=== PATIENT | male | born 1955 | race Caucasian/White ===

== ENCOUNTER 2019-03-04 06:42 | Inpatient (IN) ==
--- NOTE | 2019-02-11 16:29 | PAT Medication Instructions ---
Medication Instructions Date of Service February 11, 2019 Home Medications allopurinol 2 tab PO QPM chlorthalidone 25 mg PO QAM furosemide 20 mg PO DAILY levothyroxine 125 mcg PO QAM meloxicam 15 mg PO QAM metoprolol succinate 25 mg PO QAM omeprazole 20 mg PO QAM simvastatin 40 mg PO HS tramadol 50 mg PO HS ASK your surgeon for instructions meloxicam 15 mg PO QAM DO NOT take the morning of surgery chlorthalidone 25 mg PO QAM furosemide 20 mg PO DAILY Take morning of surgery With a small sip of water, OTHERWISE NOTHING TO EAT OR DRINK AFTER MIDNIGHT: levothyroxine 125 mcg PO QAM metoprolol succinate 25 mg PO QAM omeprazole 20 mg PO QAM Take evening before surgery allopurinol 2 tab PO QPM simvastatin 40 mg PO HS tramadol 50 mg PO HS Other Notes If you have any questions please call us at [phone] or [phone] or [phone] or [phone]
--- NOTE | 2019-02-12 09:13 | Anesthesiology Consultation ---
Date of Service February 12, 2019 Assessment & Plan (1) Encounter for pre-operative examination: - Discussed plan for spinal on day of surgery, but patient states that he is unsure he is willing to have a spinal and thinks he may only be agreeable to GA. Would like to discuss further with his and with the anesthesiologist the morning of surgery Chart Review Chart Review: Acceptable Risk for Surgery and Patient seen in Pre Admission Testing Consults Requested none Teaching & Discussion Pre-Anesthesia Teaching/Discussion Notes: Instructed NPO after midnight before surgery, except medications with 15 cc of water. Medication instructions provided according to the PAT guidelines. History Surgery Operation Date: 03/04/19 07:30 Proposed Procedures p Left Anterior Total Hip Replacement - Guille Foster, Height/Weight Height: 6 ft 2 in Weight: 126 kg Allergies Allergy/AdvReac Type Severity Reaction Status Date / Time latex Allergy Unknown cracked Verified 02/06/19 08:24 hands,skin irritation No Known Drug Allergies Allergy Unknown NONE Verified 02/06/19 08:24 Medications Home Medications Medication Instructions Recorded Confirmed Last Taken allopurinol 2 tab PO QPM 02/06/19 02/06/19 02/05/19 chlorthalidone 25 mg PO QAM 02/06/19 02/06/19 02/05/19 furosemide 20 mg PO DAILY 02/06/19 02/06/19 02/05/19 levothyroxine 125 mcg PO QAM 02/06/19 02/06/19 02/05/19 meloxicam 15 mg PO QAM 02/06/19 02/06/19 02/05/19 metoprolol succinate 25 mg PO QAM 02/06/19 02/06/19 02/05/19 omeprazole 20 mg PO QAM 02/06/19 02/06/19 02/05/19 simvastatin 40 mg PO HS 02/06/19 02/06/19 02/05/19 tramadol 50 mg PO HS 02/06/19 02/06/19 02/05/19 Past Medical History Medical History Acid reflux Gout L WRIST CURRENTLY History of head injury AGE 12 Hyperlipidemia Hypertension Hypothyroid Osteoarthritis Spinal stenosis Exercise / Class Metabolic Activity III < 4 Walking/Shop/Light housework (Limited currently due to pain. Unable to drive. Can slowly climb stairs because of pain. Denies CP. Does report CARMEN with stairs/hills. ) Past Family History Family History Other Family history of cancer in father Past Surgical History Surgical History History of back surgery Lumbar laminectomy - 06/09/16 - MAC #3, ETT #8.0, HiLo, Grade 3 View History of cardiac cath >10 years ago. Normal History of colonoscopy History of hernia surgery Bilateral Inguinal History of surgery of head Age 12 after head injury. Unsure of details. Past Anesthesia History No Hx of Anesthesia Complications and No Family Hx of Anesthesia Complications History of PONV No Hx of PONV and No Hx of Motion Sickness Social History Smoking Status: Never smoker Do You Dip or Chew Tobacco: No Hx Alcohol Use: No Hx Substance Use: No substance use type: does not use Review of Systems Patient denies chest pain, shortness of breath, cough, wheezing, palpitations. +CARMEN (with stairs and hills) +Joint Pain (Left wrist, Left Hip, Left Knee) +Acid Reflux (controlled with current medication) Physical Exam Vital Signs BP: 136/86 P: 72 R: 18 T: 97.7 SPO2: 96% on RA Constitutional + obese ENMT Thyromental Distance: > or= 3.5 Finger Breadths (4) Mallampati Class: I Neck normal visual inspection, trachea midline and + limited neck extension Respiratory normal respiratory effort Auscultation: lungs clear to auscultation bilaterally Cardiovascular Rate/Rhythm: regular rate and regular rhythm Heart Sounds: no murmur Vessels: no carotid bruit Neurologic moves all extremities Psychiatric Orientation: alert and oriented x 3 Testing Electrocardiogram Date: 02/12/19 Findings: + NSR @ (72) and + no change from (05/27/16) Chest X-Ray Date: 02/12/19 Findings: + NAD FINDINGS: The cardiac and mediastinal contours are normal. There is no evidence of focal pulmonary consolidation. There is no evidence of failure. No pleural effusions are visualized. IMPRESSION: No active disease in the chest. Laboratory Results 02/12/19 09:55 02/12/19 09:55 PT 10.6 Seconds (9.0-12.0) 02/12/19 09:55 INR 1.0 (0.9-1.1) 02/12/19 09:55 APTT 26.7 Seconds (21.0-31.0) 02/12/19 09:55 Blood Type A Positive 02/12/19 09:55 Antibody Screen NEGATIVE 02/12/19 09:55
--- NOTE | 2019-02-12 10:23 | XRay Report ---
XR chest Pre-admission PA/Lat CLINICAL HISTORY: Preoperative chest COMPARISON STUDY: May 27, 2016 FINDINGS: The cardiac and mediastinal contours are normal. There is no evidence of focal pulmonary co nsolidation. There is no evidence of failure. No pleural effusions are visualized.[ IMPRESSION: No active disease in the chest. Electronically signed by: Luis Fernando Bhakta M.D. 02/12/2019 10:22 AM
[2019-02-12 12:37] LABS: Eosinophils # (auto) 0.04 K/uL (0-0.5); Eosinophils % (auto) 0.7 %; Hematocrit (blood only) 41.3 % (42-52); Hemoglobin 14.2 g/dL (14.0-18.0); Immature Granulocytes # (auto) 0.02 K/uL (0.00-0.02); Immature Granulocytes % (auto) 0.3 %; Lymphocytes # (auto) 1.29 K/uL (1.2-3.4); Lymphocytes % (auto) 22.3 %; Mean Corpuscular Hgb Conc 34.4 g/dL (32-36); Mean Corpuscular Volume 86.2 fL (80-100); Mean Platelet Volume 10.2 fL (7.4-10.4); Monocytes % (auto) 8.7 %; Neutrophils # (auto) 3.93 K/uL (1.4-6.5); Platelet Count 279 K/uL (130-400); RDW Coefficient of Variation 13.4 % (11.5-14.5); RDW Standard Deviation 41.6 fL (36.4-46.3); Red Blood Count 4.79 M/uL (4.7-6.1); White Blood Count 5.78 K/uL (4.8-10.8)
[2019-02-12 12:53] LABS: Partial Thromboplastin Time 26.7 Seconds (21.0-31.0); Prothrombin Time 10.6 Seconds (9.0-12.0)
[2019-02-12 13:49] LABS: BUN Creatinine Ratio 15.9 (10-20); Calcium 9.5 mg/dl (8.5-10.1); Creatinine Clr Calc Pharmacy 97.7 ml/min; Est GFR (African American) 81.7; Est GFR (Non-African American) 70.5; Potassium 3.9 mmol/L (3.5-5.1)
--- NOTE | 2019-02-26 15:10 | History & Physical Report ---
Date of Service February 26, 2019 Assessment & Plan (1) Osteoarthritis of left hip: We will proceed with a left anterior total hip arthroplasty. Postoperatively he will be placed on aspirin for DVT prophylaxis. He will be kept overnight in the hospital for postop medical management. He plans to talk to case management regarding physical therapy upon discharge. Present on Admission?: Yes History of Present Illness Chief Complaint: Primary osteoarthritis of the left hip Primary Care Provider: Violet Blum MD Ilir is a pleasant 63-year-old male who is been dealing with chronic increasing left hip and groin pain. He is using a cane now because of his left hip pain. X-rays and clinical examination have been diagnostic for primary osteoarthritis of the left hip. After failing extensive conservative treatment, he has elected proceed with a left anterior total hip arthroplasty. Allergies Allergy/AdvReac Type Severity Reaction Status Date / Time latex Allergy Unknown cracked Verified 02/06/19 08:24 hands,skin irritation No Known Drug Allergies Allergy Unknown NONE Verified 02/06/19 08:24 Home Medications Home Medications Medication Instructions Recorded Confirmed Type allopurinol 2 tab PO QPM 02/06/19 02/06/19 History chlorthalidone 25 mg PO QAM 02/06/19 02/06/19 History furosemide 20 mg PO DAILY 02/06/19 02/06/19 History levothyroxine 125 mcg PO QAM 02/06/19 02/06/19 History meloxicam 15 mg PO QAM 02/06/19 02/06/19 History metoprolol succinate 25 mg PO QAM 02/06/19 02/06/19 History omeprazole 20 mg PO QAM 02/06/19 02/06/19 History simvastatin 40 mg PO HS 02/06/19 02/06/19 History tramadol 50 mg PO HS 02/06/19 02/06/19 History Past Med/Surg History Medical History Acid reflux Gout L WRIST CURRENTLY History of head injury AGE 12 Hyperlipidemia Hypertension Hypothyroid Osteoarthritis Spinal stenosis Surgical History History of back surgery Lumbar laminectomy - 06/09/16 - MAC #3, ETT #8.0, HiLo, Grade 3 View History of cardiac cath >10 years ago. Normal History of colonoscopy History of hernia surgery Bilateral Inguinal History of surgery of head Age 12 after head injury. Unsure of details. Family History Other Family history of cancer in father Social History Preferred Language: Upper Sorbian Communication Ability: Effective Rfid Specialist Required: No Beliefs That Will Affect Care: None Current Living Situation: Spouse Other Information That Helps Us Care for You: No Feels Safe at Home: Yes Smoking Status: Never smoker Do You Dip or Chew Tobacco: No Hx Alcohol Use: No Hx Substance Use: No Review of Systems All systems reviewed & are unremarkable except as noted in HPI & below Physical Exam Constitutional: WD/WN, vitals as above Eyes: PERRL, conjunctivae normal, anicteric sclerae ENMT: external ear and nose normal, oropharynx normal Neck: trachea midline, no thyromegaly Respiratory: normal respiratory effort Cardiovascular: RRR, no murmur, no edema Gastrointestinal (Abdomen): normal bowel sounds, soft, nontender, no hepatosplenomegaly Musculoskeletal: Physical examination of the left hip reveals decreased range of motion with flexion, internal and external rotation. There is significant groin pain with forced internal rotation of the hip his leg lengths are essentia lly equal. Psychiatric: A+Ox3, euthymic affect Results & Data Diagnostic Findings Radiographs of the left hip and pelvis demonstrate advanced osteoarthritis with joint space narrowing osteophyte formation and [id number] articulation.
[~2019-03-04 06:42] MED LIST: ACETAMINOPHEN 500 MG TAB PO SCH; CEFAZOLIN 3000MG 65 ML IV SCH; FAMOTIDINE 20 MG TAB PO SCH; GABAPENTIN 300 MG x 2 PO SCH; LR 500ML BOLUS, THEN 15ML/HR IV SCH; LR 60ML/HR IV SCH; ROPIVACAINE 0.5% HCL/PF 150 MG, BUPIVACAINE 0.5% MPF 30 ML, EPINEPHrine 30MG/30ML (OR U... INFIL SCH; TRANEXAMIC ACID 1,000 MG **IV Intra-op IV SCH; TRANEXAMIC ACID 1,000 MG **IV Pre-op IV SCH
[2019-03-04] MEDS ORDERED: BUPIVACAINE 0.5 % 5 MG/1 ML PF 10ML VIAL ONE (07:16)
[2019-03-04] MEDS ORDERED: PROPOFOL IV EMULSION 10 MG/ML 20 ML VIAL IV ONE (07:36)
[2019-03-04] MEDS ORDERED: fentaNYL citrate 100 MCG/2 ML VIAL ONE ×2 (07:36→11:12)
[2019-03-04] MEDS ORDERED: MIDAZOLAM HCL 1 MG/ML 2ML VIAL ONE (07:37)
[2019-03-04] MEDS ORDERED: ATROPINE SULFATE 0.1 MG/ML 10ML SYR IV PRN (08:17)
[2019-03-04] MEDS ORDERED: ePHEDrine sulfate 50 MG/ML AMP IV PRN (08:17)
[2019-03-04] MEDS ORDERED: ONDANSETRON INJ 2 MG/ML 2 ML VIAL IV PRN (08:17)
[2019-03-04] MEDS ORDERED: LIDOCAINE HCL 2% 2 ML VIAL/AMP(20MG/ML) INFIL ONE (08:19)
[2019-03-04] MEDS ORDERED: ONDANSETRON INJ 2 MG/ML 2 ML VIAL ONE (08:19)
[2019-03-04] MEDS ORDERED: ROCURONIUM BROMIDE 10 MG/ML 5 ML VIAL ONE (08:19)
--- NOTE | 2019-03-04 08:52 | History & Physical Bridge Note ---
Date of Service March 04, 2019 History & Physical Bridge Note I have examined the patient, reviewed the History & Physical and in the interval since the performance of the History & Physical I have noted the following changes of clinical significance: no changes noted
[2019-03-04] MEDS ORDERED: POVIDONE-IODINE OP SOLN 30 ML BTL ONE (09:07)
[2019-03-04] MEDS ORDERED: ORTHO JOINT ANESTHETIC ONE (09:07)
[2019-03-04] MEDS ORDERED: NEOSTIGMINE METHYLSULFATE 5 MG/5 ML SYR ONE (11:40)
[2019-03-04] MEDS ORDERED: GLYCOPYRROLATE 0.2 MG/ML VIAL ONE (11:40)
--- NOTE | 2019-03-04 11:41 | Operative Report ---
Post Operative Report Pre & Post Diagnosis Operation Date: 03/04/19 09:10 Pre-Op Diagnosis: Left Hip Degenerative Joint Disease Post-Op Diagnosis: Left Hip Degenerative Joint Disease Procedure Operation Date: 03/04/19 09:10 Actual Procedures p Left Anterior Total Hip Replacement(Left) - Guille Foster DO Surgeon Guille Foster DO Broadband Technician Guille Jacob PAC Estimated Blood Loss 250 Findings Consistent with Post-Op Diagnosis Specimens Left femoral head Complications none Disposition Disposition: Recovery Room Indications 83-year-old male who presented my office with complaints of chronic increasing left groin pain. X-rays and clinical examination were diagnostic for primary osteoarthritis of left hip. After failing conservative treatment, he elected to proceed with a left anterior total hip arthroplasty. Description of Procedure Implants used Biomet Taperloc total hip arthroplasty system with a size 15 mm standard offset Taperloc stem, a 56 mm G7 cup with a 25mm screw, an E1 polyethylene liner, a 40 mm ceramic head with a -3 neck. Patient arrived at the hospital for the above procedure. They were seen in the preoperative holding area and the operative extremity was identified and signed. They were given a spinal anesthetic. They were given a preoperative antibiotic and TXA. They were taken back To the operating room and laid on the table in the supine position. The leg was brought out through a Puristst leg positioner. The hip was then prepped and draped in sterile fashion. A timeout was done and the patient in upper extremities properly identified. An anterior approach was used. Dissection was taken down through the fascia and the tensor muscle belly was retracted laterally and the rectus was retracted medially. The circumflex vessels were identified and ligated. The capsule was then incised and tagged for later repair. The femoral neck was then cut and the femoral head was removed. The acetabulum was exposed. Time was spent doing a complete circumferential labral release. Sequential reaming of the acetabulum up to a size 55 reamer was done. Final reamings were done under fluoroscopy to ensure appropriate version. A Biomet 56 mm G7 cup was then impacted into place. A single 25 mm screw was placed. The E1 polyethylene liner was then snapped into place. Surrounding soft tissues were then injected with 100 cc of an orthopedic pain control cocktail. The proximal femur was then exposed. Sequential broaching up to a size 15 broach was done. Off that broach a size 40 head with a -3 neck was trialed. The hip was reduced and fluoroscopic images showed anatomic alignment of the implants in acceptable length. The broach was removed. The final size 15 standard offset Taperloc stem was then impacted into place. A ceramic 40 mm head with a -3 neck was then impacted into place in the hip was reduced. Final fluoroscopic images showed anatomic reduction of the hip. The capsule was then closed with #1 Vicryl suture. A dilute betadyne lavage was then done for 3 minutes. The joint was then irrigated with normal saline solution. The fascia was closed with #1 PDS suture. Skin was closed with 2-0 Vicryl, sanchez, and a Mary VAC dressing. The patient was then transferred to a hospital bed and taken to the post anesthesia care unit in stable condition. They tolerated the procedure well. I attest to the content of the Intraoperative Record and any orders documented therein. Any exceptions are noted below.
[2019-03-04] MEDS: fentaNYL citrate 100 MCG/2 ML VIAL IV PRN ×4 (12:15→12:43)
--- NOTE | 2019-03-04 12:36 | XRay Report ---
XR hip 1V LT w pelvis CLINICAL HISTORY: Postoperative evaluation. COMPARISON: Left hip radiographs January 09, 2019. FINDINGS: Alignment of the total left hip arthroplasty is anatomic. There is an acetabular screw. No fracture or unexpected radiopaque foreign bodies are present. IMPRESSION: Expected findings following total left hip arthroplasty. Electronically signed by: Devan Draper M.D. 03/04/2019 12:35 PM
--- NOTE | 2019-03-04 12:38 | Fluoroscopy Report ---
FL hip LT 1V CLINICAL HISTORY: Left hip arthroplasty. COMPARISON STUDY: Left hip radiographs January 09, 2019. FLUOROSCOPY TIME: 30 seconds. FLUOROSCOPIC IMAGES: 2. FINDINGS: These images demonstrate a total left hip arthroplasty. Hardware is intact. Acetabular scre w. There is no fracture or unexpected radiopaque foreign body. IMPRESSION: Intraoperative fluoroscopic images demonstrating total left hip arthroplasty. Electronically signed by: Devan Draper M.D. 03/04/2019 12:37 PM
[2019-03-04] MEDS: MoRPHine SULFATE 10 MG/ML CARP/VIAL IV PRN ×2 (12:53→13:00)
--- NOTE | 2019-03-04 13:17 | Anesthesiology Progress Note ---
Date of Service March 04, 2019 Anesthesia Post Procedure Vital Signs Vital Signs: Temp Pulse Resp BP Pulse Ox 03/04/19 13:10 97.3 F L 76 12 107/79 100 03/04/19 13:00 69 15 113/72 100 03/04/19 12:50 68 16 108/66 100 03/04/19 12:40 74 16 111/74 100 03/04/19 12:30 69 15 116/67 100 03/04/19 12:20 65 15 102/74 100 03/04/19 12:10 74 18 118/72 100 03/04/19 12:03 97.3 F L 70 17 131/70 100 03/04/19 07:12 97.9 F 92 H 18 165/94 H 99 Pain Intensity Left Hip: Pain Intensity: 4 Transfer of Care Handoff Completed per policy Notes Mental Status: alert / awake / arousable and participated in evaluation Patient Amnestic to Procedure: Yes Nausea / Vomiting: adequately controlled Pain: adequately controlled Airway Patency, RR, SpO2: stable & adequate BP & HR: stable & adequate Hydration State: stable & adequate Anesthetic Complications: no major complications apparent and Pt Satisfied with anesthetic care
[2019-03-04] MEDS ORDERED: MAGNESIUM HYDROXIDE SUSP 30 ML UDC PO PRN (13:43)
[2019-03-04] MEDS ORDERED: SODIUM CHLORIDE 0.9% 1000ML 1,000 ML IV SCH (13:43)
[2019-03-04] MEDS ORDERED: HYDROmorphone INJ 0.5 MG/0.5 ML SYR IV PRN (13:43)
[2019-03-04] MEDS ORDERED: METOCLOPRAMIDE HCL INJ 5 MG/ML 2 ML VIAL IV PRN (13:43)
[2019-03-04] MEDS ORDERED: BISACODYL 10 MG SUPP PR PRN (13:43)
[2019-03-04] MEDS ORDERED: NALOXONE HCL 0.4 MG/1 ML VIAL/CARP IV PRN (13:43)
[2019-03-04] MEDS: ACETAMINOPHEN 500 MG TAB PO SCH ×2 (14:12→21:07)
[2019-03-04] MEDS: KETOROLAC 30 MG/ML VIAL IV SCH ×2 (15:50→21:08)
[2019-03-04] MEDS: CEFAZOLIN 2000MG 2,000 MG/15 ML SYR IV SCH (16:36)
[2019-03-04] MEDS: SIMVASTATIN 40 MG TAB PO SCH (20:22)
[2019-03-04] MEDS: DOCUSATE SODIUM 100 MG CAP PO SCH (20:22)
[2019-03-04] MEDS: SENNA 8.6 MG TAB PO SCH (20:23)
[2019-03-04] MEDS: ASPIRIN 81 MG ECTAB PO SCH (20:23)
[2019-03-04] MEDS: ALLOPURINOL 100 MG TAB PO SCH (20:23)
[2019-03-05] MEDS: CEFAZOLIN 2000MG 2,000 MG/15 ML SYR IV SCH (01:45)
[2019-03-05] MEDS: KETOROLAC 30 MG/ML VIAL IV SCH ×4 (03:55→21:13)
[2019-03-05] MEDS: LEVOTHYROXINE SODIUM 125 MCG TABLET PO SCH (06:10)
[2019-03-05] MEDS: ACETAMINOPHEN 500 MG TAB PO SCH ×3 (06:10→21:13)
[2019-03-05 06:20] LABS: Eosinophils # (auto) 0.03 K/uL (0-0.5); Eosinophils % (auto) 0.3 %; Hematocrit (blood only) 36.1 % (42-52); Hemoglobin 11.7 g/dL (14.0-18.0); Immature Granulocytes # (auto) 0.03 K/uL (0.00-0.02); Immature Granulocytes % (auto) 0.3 %; Lymphocytes % (auto) 6.9 %; Mean Corpuscular Hgb Conc 32.4 g/dL (32-36); Mean Corpuscular Volume 87.4 fL (80-100); Mean Platelet Volume 9.6 fL (7.4-10.4); Monocytes # (auto) 0.71 K/uL (0.11-0.59); Neutrophils # (auto) 8.63 K/uL (1.4-6.5); Neutrophils % (auto) 85.5 %; Platelet Count 162 K/uL (130-400); RDW Coefficient of Variation 14.4 % (11.5-14.5); RDW Standard Deviation 45.8 fL (36.4-46.3); Red Blood Count 4.13 M/uL (4.7-6.1)
[2019-03-05] MEDS: TRAMADOL HCL 50 MG TABLET PO PRN ×3 (06:43→20:13)
[2019-03-05] MEDS ORDERED: HYDROCODONE/ACETAMOPHEN 5/325MG TAB PO PRN (06:49)
--- NOTE | 2019-03-05 06:49 | Orthopedic Progress Note ---
Date of Service March 05, 2019 Assessment & Plan (1) Osteoarthritis of left hip: Overall he is doing fairly well. He will be seen by physical therapy today to do ambulation and range of motion exercises. Is on aspirin for DVT prophylaxis and I am going to add some [place] for pain control. He said that tramadol generally does not work well for him but he can take oxycodone due to delirium. He was hoping to go to an inpatient rehab facility. Case management will be by today to discuss that with him. He can be discharged later today if he is ambulating well with physical therapy and if a bed is available at a rehab facility. He will follow-up with orthopedics in 2 weeks. Present on Admission?: Yes Ozzie Hazel was seen and examined at bedside this morning. Overall he is doing fairly well. Is not having much pain in the left hip. He was ambulating to the bathroom tonight. He has not been in the hallway yet. He has no complaints. Physical Exam Musculoskeletal: On physical examination of the left hip, the Mary VAC dressing is to suction. His leg lengths are equal. He has active dorsiflexion and plantarflexion of the left ankle. Sensations intact throughout. Results & Data Vital Signs (Past 12 Hours) Vital Signs Temp Pulse Resp BP Pulse Ox 03/05/19 03:53 36.6 C 77 18 120/71 95 03/04/19 23:20 36.4 C L 73 18 103/63 97 03/04/19 19:15 36.4 C L 87 18 131/83 97 Laboratory Results H & H 02/12/19 03/05/19 Range/Units 09:55 05:49 Hgb 14.2 11.7 L (14.0-18.0) g/dL Hct 41.3 L 36.1 L (42-52) % Coagulation 02/12/19 Range/Units 09:55 INR 1.0 (0.9-1.1) Diagnostic Findings Postoperative x-rays of the left hip show the prosthesis to be in anatomic alignment without any evidence of fracture, dislocation, or loosening.
[2019-03-05 06:54] LABS: BUN Creatinine Ratio 13.3 (10-20); Calcium 8.2 mg/dl (8.5-10.1); Est GFR (African American) 70.2; Est GFR (Non-African American) 60.6; Potassium 3.5 mmol/L (3.5-5.1)
[2019-03-05] MEDS: ASPIRIN 81 MG ECTAB PO SCH ×2 (08:53→20:14)
[2019-03-05] MEDS: DOCUSATE SODIUM 100 MG CAP PO SCH ×2 (08:53→20:14)
[2019-03-05] MEDS: METOPROLOL SUCC 25MG EXT REL TAB PO SCH (08:54)
[2019-03-05] MEDS: MULTIVITAMIN TAB PO SCH (08:54)
[2019-03-05] MEDS: FUROSEMIDE 20 MG TAB PO SCH (08:55)
[2019-03-05] MEDS: CHLORTHALIDONE 25 MG TAB PO SCH (08:55)
[2019-03-05] MEDS: PANTOprazole 40 MG TAB PO SCH (08:55)
--- NOTE | 2019-03-05 10:05 | Anesthesiology Progress Note ---
Date of Service March 05, 2019 Anesthesia Post Procedure Vital Signs Vital Signs: Temp Pulse Pulse Resp BP BP Pulse Ox 03/05/19 08:51 81 128/75 03/05/19 07:26 36.4 C L 77 18 116/70 98 03/05/19 03:53 36.6 C 77 18 120/71 95 03/04/19 23:20 36.4 C L 73 18 103/63 97 03/04/19 19:15 36.4 C L 87 18 131/83 97 03/04/19 16:28 36.6 C 86 17 116/70 94 03/04/19 15:34 36.4 C L 73 17 122/83 99 03/04/19 14:30 82 17 159/93 H 99 03/04/19 13:57 36.4 C L 77 16 121/84 97 03/04/19 13:30 36.4 C L 76 H 130/85 100 03/04/19 13:20 68 16 121/78 99 03/04/19 13:10 36.3 C L 76 12 107/79 100 03/04/19 13:00 69 15 113/72 100 03/04/19 12:50 68 16 108/66 100 03/04/19 12:40 74 16 111/74 100 03/04/19 12:30 69 15 116/67 100 03/04/19 12:20 65 15 102/74 100 03/04/19 12:10 74 18 118/72 100 03/04/19 12:03 36.3 C L 70 17 131/70 100 Notes Mental Status: alert / awake / arousable and participated in evaluation Nausea / Vomiting: adequately controlled Pain: adequately controlled Airway Patency, RR, SpO2: stable & adequate BP & HR: stable & adequate Hydration State: stable & adequate
[2019-03-05] MEDS: SENNA 8.6 MG TAB PO SCH (20:14)
[2019-03-05] MEDS: ALLOPURINOL 100 MG TAB PO SCH (20:14)
[2019-03-05] MEDS: SIMVASTATIN 40 MG TAB PO SCH (20:14)
[2019-03-06] MEDS: KETOROLAC 30 MG/ML VIAL IV SCH ×2 (04:05→09:00)
[2019-03-06] MEDS: ACETAMINOPHEN 500 MG TAB PO SCH ×3 (06:10→21:50)
[2019-03-06] MEDS: LEVOTHYROXINE SODIUM 125 MCG TABLET PO SCH (06:10)
--- NOTE | 2019-03-06 06:21 | Orthopedic Progress Note ---
Date of Service March 06, 2019 Assessment & Plan (1) Osteoarthritis of left hip: Overall is doing fairly well. He is working well with physical therapy. He is on aspirin for DVT prophylaxis. He is awaiting placement in rehab facility. His does not feel like she is able to talk care of him if he were to return home. He is orthopedically stable for discharge at this time. He will follow-up with orthopedics in 2 weeks. Present on Admission?: Yes Ozzie Hazel was seen and examined at bedside this morning. Overall is doing very well. He is having a little bit of soreness of his hip but is not too bad. He has been up and ambulating well with physical therapy. He has no complaints. Physical Exam Musculoskeletal: On physical examination of his left hip, the Mary VAC dressing is to suction. His leg lengths are equal. He is active dorsiflexion and plantarflexion of his left ankle. Sensation is intact throughout. Results & Data Vital Signs (Past 12 Hours) Vital Signs Temp Pulse Resp BP Pulse Ox 03/05/19 23:35 36.4 C L 75 18 131/75 94
--- NOTE | 2019-03-06 06:31 | Discharge Summary ---
Date of Service March 06, 2019 Admission HPI Per Admitting Provider Ilir is a pleasant 63-year-old male who is been dealing with chronic increasing left hip and groin pain. He is using a cane now because of his left hip pain. X-rays and clinical examination have been diagnostic for primary osteoarthritis of the left hip. After failing extensive conservative treatment, he has elected proceed with a left anterior total hip arthroplasty. Specialty Data Orthopedic H & H 02/12/19 03/05/19 Range/Units 09:55 05:49 Hgb 14.2 11.7 L (14.0-18.0) g/dL Hct 41.3 L 36.1 L (42-52) % Coagulation 02/12/19 Range/Units 09:55 INR 1.0 (0.9-1.1) Discharge Data Consultations 03/05/19 08:00 Consult Case Management - Discharge Planning Routine Procedures Performed Operation Date: 03/04/19 09:10 Actual Procedures p Left Anterior Total Hip Replacement(Left) - Guille Foster DO Hospital Course (1) Osteoarthritis of left hip: On March 04, 2019 Ilir arrived at [facility] and underwent a left anterior total hip arthroplasty without complication. He had a spinal anesthetic. Postoperatively he was started on aspirin for DVT prophylaxis and discharged to general orthopedic floors. His hospital course was uneventful. On postop day #1 his H&H was stable and his pain was well controlled. He was able to ambulate well with physical therapy. On postop day #2 he continued to do fairly well. He was having a little bit of soreness in his hip but it was controlled with the hydrocodone. He continue to work well with physical therapy. He was then discharged to a rehab facility. He will follow-up with orthopedics in 2 weeks. Discharge Instructions Home Medications Medication Instructions Recorded Confirmed allopurinol 2 tab PO QPM 02/06/19 03/04/19 chlorthalidone 25 mg PO QAM 02/06/19 03/04/19 furosemide 20 mg PO DAILY 02/06/19 03/04/19 levothyroxine 125 mcg PO QAM 02/06/19 03/04/19 meloxicam 15 mg PO QAM 02/06/19 03/04/19 metoprolol succinate 25 mg PO QAM 02/06/19 03/04/19 omeprazole 20 mg PO QAM 02/06/19 03/04/19 simvastatin 40 mg PO HS 02/06/19 03/04/19 tramadol 50 mg PO HS 02/06/19 02/06/19 Previous Rx's Medication Instructions Recorded aspirin [Ecotrin Low Strength] 81 mg PO BID #84 tab 03/05/19 hydrocodone-acetaminophen 1 tab PO Q6H PRN #40 tab 03/05/19 tramadol 50 - 100 mg PO Q4H PRN #30 tab 03/05/19
[2019-03-06] MEDS: DOCUSATE SODIUM 100 MG CAP PO SCH ×2 (08:51→20:34)
[2019-03-06] MEDS: FUROSEMIDE 20 MG TAB PO SCH (08:52)
[2019-03-06] MEDS: PANTOprazole 40 MG TAB PO SCH (08:52)
[2019-03-06] MEDS: ASPIRIN 81 MG ECTAB PO SCH ×2 (08:52→20:34)
[2019-03-06] MEDS: MULTIVITAMIN TAB PO SCH (08:52)
[2019-03-06] MEDS: METOPROLOL SUCC 25MG EXT REL TAB PO SCH (08:53)
[2019-03-06] MEDS: CHLORTHALIDONE 25 MG TAB PO SCH (08:53)
[2019-03-06] MEDS: TRAMADOL HCL 50 MG TABLET PO PRN (14:02)
[2019-03-06] MEDS: ONDANSETRON INJ 2 MG/ML 2 ML VIAL IV PRN (18:56)
[2019-03-06] MEDS: SIMVASTATIN 40 MG TAB PO SCH (20:34)
[2019-03-06] MEDS: ALLOPURINOL 100 MG TAB PO SCH (20:34)
[2019-03-06] MEDS: SENNA 8.6 MG TAB PO SCH (20:34)
[2019-03-07] MEDS: LEVOTHYROXINE SODIUM 125 MCG TABLET PO SCH (06:24)
[2019-03-07] MEDS: ACETAMINOPHEN 500 MG TAB PO SCH (06:24)
[2019-03-07] MEDS: ASPIRIN 81 MG ECTAB PO SCH (08:48)
[2019-03-07] MEDS: FUROSEMIDE 20 MG TAB PO SCH (08:48)
[2019-03-07] MEDS: CHLORTHALIDONE 25 MG TAB PO SCH (08:48)
[2019-03-07] MEDS: DOCUSATE SODIUM 100 MG CAP PO SCH (08:48)
[2019-03-07] MEDS: PANTOprazole 40 MG TAB PO SCH (08:48)
[2019-03-07] MEDS: MULTIVITAMIN TAB PO SCH (08:48)
[2019-03-07] MEDS: METOPROLOL SUCC 25MG EXT REL TAB PO SCH (08:49)
[2019-03-07] MEDS: TRAMADOL HCL 50 MG TABLET PO PRN (12:41)
[2019-03-07] MEDS: ONDANSETRON INJ 2 MG/ML 2 ML VIAL IV PRN (13:02)
== END 2019-03-07 13:26 | disposition home health service (06) | DRG 470 ==
LOC: ASU 06:42 → 3E 12:04